=== PATIENT | male | born 1940 | race Two or more races ===

== ENCOUNTER 2016-08-11 05:52 | Day surgery (SDC) | payer SELFPAY ==
[~2016-08-11] VITALS: Ht 185.4 cm; Wt 86.2 kg
[2016-08-11] VITALS (12 sets, daily range): BP systolic 102–148; BP diastolic 50–81
[~2016-08-11 05:52] MED LIST: ANASTROZOLE1 MG PO; ASPIRIN81 MG ORAL; AVODART0.5 MG ORAL; CIALIS5 MG PO; CRESTOR40 MG ORAL; CYANOCOBAL1000 MCG/2 IJ; GLUCOPHAGE500 MG ORAL; LOVAZA1 GM ORAL; NORDITROPI5 MG/1.52 SQ; PREGNENOLONE5 GM; PREGNYL10000 UNIT IM; TESTOSTERO200 MG/1 M IM; VESICARE5 MG ORAL
[2016-08-11] MEDS ORDERED: Vancomycin 1gm/D5W 275ml IVPB ONE ×2 (06:00)
[2016-08-11] MEDS ORDERED: Bacitracin Oint 15gm Tube TOPIC ONE (06:53)
[2016-08-11] MEDS ORDERED: Surgicel 4in x 8in TOPIC ONE (06:53)
[2016-08-11] MEDS ORDERED: Vancomycin 1gm inj IVPB ONE (06:54)
[2016-08-11] MEDS ORDERED: Bacitracin 50000 Units Vial ONE ×2 (06:54→10:35)
--- NOTE | 2016-08-11 07:21 | Anethesia Preoperative Eval ---
Anesthesia Pre-op PMH/ROS General Date of Evaluation: Aug 11, 2016 Anesthesiologist: Ken ASA Score: ASA 3 Mallampati Score Class I : Soft palate, uvula, fauces, pillars visible Class II: Soft palate, uvula, fauces visible Class III: Soft palate, base of uvula visible Class IV: Only hard plate visible Mallampati Classification: Class II Surgeon: Thomas Diagnosis: Penile dysfunction Surgical Procedure: Penile prosthesis placement Anesthesia History: none Family History: no anesthesia problems Allergies: Coded Allergies: PENICILLINS (Verified Allergy, Unknown, 08/10/16) Medications: see eMAR Past Medical History Cardiovascular: Denies: CAD, HTN, [place], arrhythmia, other, valve dz Pulmonary: Denies: COPD, BETTY, asthma, other Gastrointestinal/Genitourinary: Reports: other - prostate cancer, Denies: CRI, ESRD, GERD Neurologic/Psychiatric: Denies: CVA, TIA, dementia, depression/anxiety, other Endocrine: Denies: DM, hypothyroidism, other, steroids HEENT: Denies: [place] (L), [place] (R), cataract (L), cataract (R), glaucoma, other Hematology/Immune: Denies: DVT, anemia, bleeding disorder, other Musculoskeletal/Integumentary: Denies: DDD, DJD, OA, RA, edema, other PSxH Narrative: prostatectomy Anesthesia Pre-op Phys. Exam Physician Exam Last Vital Signs Date Time Temp Pulse Resp B/P Pulse Ox O2 Delivery O2 Flow Rate FiO2 08/11/16 06:29 98.5 71 18 118/76 96 Room Air Constitutional: NAD Cardiovascular: RRR Respiratory: CTA Airway Exam Mallampati Score: Class II MO: limited ROM: full Teeth: intact Anesthesia Pre-op A/P Labs see chart Studies Pre-op Studies: EKG - sr Risk Assessment & Plan Assessment: ASA III Plan: GA Status Change Before Surgery: No Pre-Antibiotics Drug: Vanco and gentamycin Given Within 1 Hr of Incision: SHONNA Gutierrez M.D. Aug 11, 2016 07:21
[2016-08-11] MEDS ORDERED: Lidocaine 1% MPF 10mg/ml 5ml ONE (08:00)
[2016-08-11] MEDS ORDERED: Hydromorphone 0.5mg/0.5ml inj IVP PRN (08:00)
[2016-08-11] MEDS ORDERED: Dexamethasone 4mg/ml vial ONE (08:00)
[2016-08-11] MEDS ORDERED: LR 1000ml ONE (08:00)
[2016-08-11] MEDS ORDERED: fentaNYL 250mcg/5ml ONE (08:00)
[2016-08-11] MEDS ORDERED: Ketorolac 30mg Inj ONE (08:00)
[2016-08-11] MEDS ORDERED: fentaNYL 100 mcg/2 mL IV PRN (08:00)
[2016-08-11] MEDS ORDERED: Nimbex 2mg/ml Inj 10ML IVP ONE (08:00)
[2016-08-11] MEDS ORDERED: NS Irrig 1000ml ONE (08:00)
[2016-08-11] MEDS ORDERED: Propofol 10mg/ml 20ml IV ONE (08:00)
[2016-08-11] MEDS ORDERED: Metoclopramide 10mg/2ml Inj IVP PRN ×2 (08:00→08:08)
[2016-08-11] MEDS ORDERED: DiphenhydrAMINE 50mg/ml Inj IVP PRN (08:00)
[2016-08-11] MEDS ORDERED: Sterile Water Irrig 1000ml IRRIG ONE (08:00)
[2016-08-11] MEDS ORDERED: Ketorolac 30mg Inj IV PRN (08:00)
--- NOTE | 2016-08-11 08:02 | Pre-Procedure Note/Attestation ---
Pre-Procedure Note/Attestation Complete Prior to Procedure Planned Procedure: not applicable Procedure Narrative: penile reconstruction, implantation of 3 piece penile prosthesis Indications for Procedure Pre-Operative Diagnosis: impotence Attestation I attest that I discussed the nature of the procedure; its benefits; risks and complications; and alternatives (and the risks and benefits of such alternatives ), prior to the procedure, with the patient (or the patient's legal labor representative). I attest that, if there was a reasonable possibility of needing a blood transfusion, the patient (or the patient's legal labor representative) was given the [facility] standardized written summary, pursuant to the [place] Blood Safety Act ([place] Health and Safety Code # 1645, as amended). I attest that I re-evaluated the patient just prior to the surgery and that there has been no change in the patient's H&P, except as documented below: Isael Guzman MD Aug 11, 2016 08:02
--- NOTE | 2016-08-11 08:07 | Brief Operative Note ---
Immediate Post Operative Note Operative Note Pre-op Diagnosis: impotence Procedure: penile reconstruction IPP Post-op Diagnosis: same Post-op Diagnosis: same as pre-op Surgeon: Sushil Guzman Sales Administration Specialist: Lul Enriquez Anesthesia: general Specimen: none Complications: none Condition: stable Estimated Blood Loss: minimal Drains: none Implant(s) used?: Yes Isael Guzman MD Aug 11, 2016 08:07
[2016-08-11] MEDS ORDERED: HYDROmorphone 1mg/ml Carpuject SUBQ PRN (08:15)
[2016-08-11] MEDS ORDERED: Tylenol #3 tab (300mg/30mg) ORAL PRN (08:15)
[2016-08-11] MEDS ORDERED: D5 1/2NS 1,000 ML IV SCH (08:15)
[2016-08-11] MEDS ORDERED: Norco 5mg/325mg tab ORAL PRN (08:15)
[2016-08-11] MEDS ORDERED: NS Irrig 1000ml IRRIG ONE (08:25)
[2016-08-11] MEDS ORDERED: Bupivacaine 0.5% Inj 30 ml vial INJ ONE (11:19)
--- NOTE | 2016-08-11 11:49 | Immediate Post-Op Evaluation ---
Immediate Post-Op Evalulation Immediate Post-Op Evalulation Procedure: Penile prosthesis placemen t Date of Evaluation: Aug 11, 2016 Time of Evaluation: 11:51 IV Fluids: 2.2L Blood Products: 0 Estimated Blood Loss: 50 Urinary Output: 100 Blood Pressure Systolic: 113 Blood Pressure Diastolic: 76 Pulse Rate: 63 Respiratory Rate: 16 O2 Sat by Pulse Oximetry: 100 Temperature (Fahrenheit): 99.1 Pain Score (1-10): 0 Nausea: No Vomiting: No Complications 0 Patient Status: awake, reacts, patent, none Hydration Status: adequate Drug: Vanco and gentamycin Given Within 1 Hr of Incision: Yes Time Given: 07:45 SHONNA ESPINAL M.D. Aug 11, 2016 11:49
[2016-08-11] MEDS ORDERED: LR 1000ml 1,000 ML IVLG SCH (14:00)
[2016-08-12 08:27] VITALS: BP 148/81
--- NOTE | 2016-08-12 08:27 | 48 Hour Post Anesthesia Eval ---
Post Anesthesia Evaluation Procedure: Penile prosthesis placemen t Date of Evaluation: Aug 11, 2016 Time of Evaluation: 16:30 Blood Pressure Systolic: 148 0: 81 Pulse Rate: 79 Respiratory Rate: 18 Temperature (Fahrenheit): 97.8 O2 Sat by Pulse Oximetry: 98 Airway: patent Nausea: No Vomiting: No Pain Intensity: 1 Hydration Status: adequate Cardiopulmonary Status: at baseline Mental Status/LOC: patient returned to baseline Post-Anesthesia Complications: 0 Follow-up care needed: ready to discharge SHONNA ESPINAL M.D. Aug 12, 2016 08:27
--- NOTE | 2016-08-17 01:00 | Operative Note - Dictated ---
DATE OF OPERATION: 08/11/2016 NOTE: "POOR AUDIO QUALITY" PREOPERATIVE DIAGNOSES: Prostate cancer, status post prostatectomy, organic impotence penile reconstruction with removal of excess skin and previously injected fat materials and implantation of three-piece penile prosthesis. POSTOPERATIVE DIAGNOSES: Prostate cancer, status post prostatectomy, organic impotence penile reconstruction with removal of excess skin and previously injected fat materials and implantation of three-piece penile prosthesis. SURGEON: Isael Guzman M.D. HOP STRAINER: Lul Enriquez M.D. FINDINGS: Obstructed corpora and granulomatous reaction around the penile due to the previous injections. INDICATION FOR SURGERY: The patient is well known to me, who has suffered from some degree of erectile dysfunction and then developed prostate cancer. So, he underwent robotic prostatectomy and became completely impotent. He tried several intracorporeal injections, basically with a significant painful reaction. He is unable to achieve erections using this method or using Cialis or other conservative treatments. Explained to him treatment options including potential complications such as infection, rejection of prosthesis, , hematoma, SC, PE, and . He signed a consent. DESCRIPTION OF PROCEDURE: He was brought to the operating room, placed in a supine position, and prepped and draped in a standard fashion. Penile skin was incised in a circumferential manner. In the end, penile shaft was from previous excisions and sporadic reactions from fat injection. There was a lot of necrotic tissue underneath the skin that was excised preserving tunica albuginea. After that, part of this area was removed and reconstructed and nice flow of tissue in the penile shaft and the penile glans was freed up also from surrounding adhesions. His frenulum was also elongated. After this was completed and closed with interrupted 4-0 plain catgut sutures, penoscrotal incision was made and the corpora was mobilized in a standard fashion. Approximately 2 cm corporotomy incision was done on both sides. Corpora was dilated to 14-Pal[place]an with dilators and measured up to 22 cm. A 22 cm inflatable penile prosthesis cylinders were placed into the corpora and the corpora was closed with a running 2-0 Vicryl suture. Using separate incision in the groin, Frank fascia and external oblique aponeurosis was opened and 100 mL was placed in the retroperitoneal space deep underneath so it does not the skin. After that, the fascia was closed in three layers and subcuticular closure for the skin. The connection between the reservoir and the pump was established using the standard connectors from and pump was placed inside position in the scrotum. After copious irrigation, prosthesis was tested. There was a good cosmetic result with a feeling of both corpora and the wound was closed in three layers with Vicryl and subcuticular closure for the skin, dressing, and scrotal support. The patient tolerated the procedure well. Sponge count and instrument count was correct. ESTIMATED BLOOD LOSS: Minimal. Isael Guzman M.D. DR: ABDULKADIR JOB#: [id number] CC:
== END 2016-08-11 16:40 | disposition home or self-care (01) ==
LOC: SUR 05:52 → EEVIPCON 07:30 → SUR 16:40
DX: N52.9 Male erectile dysfunction, unspecified (principal); Z18.89 Other specified retained foreign body fragments; Z85.46 Personal history of malignant neoplasm of prostate; Z90.79 Acquired absence of other genital organ(s); Z88.0 Allergy status to penicillin; Z90.49 Acquired absence of other specified parts of digestive tract
CPT/HCPCS: 94003; 94150; J2405